=== PATIENT | male | born 1945 | race Hispanic/Latino ===

== ENCOUNTER 2018-08-08 07:28 | Day surgery (SDC) | payer MEDICARE ==
[~2018-08-08] VITALS: Ht 167.6 cm; Wt 63.5 kg
[~2018-08-08 07:28] MED LIST: GLIP5TAB11 PO; ISOS30TA6 PO; LISI1TAB9 PO; METO25TA6 PO; SODIUM CHLORIDE 0.9% 1000ML 1,000 ML IV ONE
[2018-08-08 08:27] VITALS: BP 154/84
[2018-08-08] MEDS ORDERED: PROPOFOL 10 MG/ML 20ML VIAL IV ONE (11:03)
[2018-08-08 11:23] VITALS: BP 89/49
--- NOTE | 2018-08-08 11:25 | NUR ---
Pt Eduardo was received from GI procedure room by GI RN & CONTROL AREA OPERATOR. Shortly after RN & CONTROL AREA OPERATOR left the pt SaO2 dropped from 93% to 69% to 49% and was completely obstructing. Increased O2 to 15L NC, jaw thrust and repositioned, MA went for help from anesthesia. Dr Thrasher came in and we started bag ventilations as pt was not exchanging air and SAO2 was still in the 60's%. After 3-5 minutes of active interventions, pt spontaneous started breathing on his own and SaO2 was in 90's. Oral airway was inserted by anesthesia and oxygen left at 5L. Pt responded well and had no other problems breathing nor complaints after this episode.
[2018-08-08 11:28] VITALS: BP 105/59
[2018-08-08 11:33] VITALS: BP 109/64
[2018-08-08 11:45] VITALS: BP 116/63
== END 2018-08-08 11:55 | disposition home or self-care (01) ==
LOC: ENDO 07:28 → DAH 07:28 → ENDO 11:55
PROVIDERS: ATTEND Internal Medicine
DX: K31.89 Other diseases of stomach and duodenum (principal); K86.89 Other specified diseases of pancreas; R00.1 Bradycardia, unspecified
CPT/HCPCS: 43237; 82948; 93005; A4606; J2704; J7030